=== PATIENT | male | born 1965 ===

== ENCOUNTER → 2017-12-19 | Outpatient (CLI) | payer BC | END | disposition home or self-care (01) | LOC: C.LABSPEC 12:56 | PROVIDERS: ATTEND Dermatology | DX: R21 Rash and other nonspecific skin eruption (principal); Z86.19 Personal history of other infectious and parasitic diseases ==

== ENCOUNTER → 2018-03-15 | Outpatient (CLI) | payer BC ==
[2018-03-15 13:30] LABS: BLOOD UREA NITROGEN 22 mg/dl (7-18); CALCIUM 8.8 mg/dl (8.5-10.1); CARBON DIOXIDE 27 mmol/L (21-32); CHOLESTEROL 212 mg/dl (0-200); CREATININE 1.18 mg/dl (0.60-1.40); GLUCOSE 96 mg/dl (70-99); LDL CHOLESTEROL CALCULATED 126 mg/dl; POTASSIUM 4.3 mmol/L (3.5-5.1); SODIUM 137 mmol/L (136-145)
== END | disposition home or self-care (01) ==
LOC: C.LABPVFM 07:28
PROVIDERS: ATTEND Family Medicine
DX: Z13.1 Encounter for screening for diabetes mellitus (principal); Z13.220 Encounter for screening for lipoid disorders; Z12.11 Encounter for screening for malignant neoplasm of colon